=== PATIENT | male | born 1940 | race Caucasian/White ===

== ENCOUNTER → 2017-06-07 15:50 | Emergency (ER) | payer MEDICARE, OTHER ==
[2017-06-07 16:49] LABS: APPEARANCE CLEAR (CLEAR); BILIRUBIN NEGATIVE (NEGATIVE); COLOR YELLOW (YELLOW); GLUCOSE NEGATIVE (NEGATIVE); KETONE NEGATIVE (NEGATIVE); NITRITE NEGATIVE (NEGATIVE); PROTEIN TRACE mg/dL (NEGATIVE); SPECIFIC GRAVITY 1.015 (1.005-1.020); UROBILINOGEN NORMAL (NORMAL)
[2017-06-07 17:23] LABS: ALBUMIN 2.6 g/dL (3.4-5.0); ANION GAP 12.6 mmol/L (8-16); BILIRUBIN - TOTAL 0.69 mg/dL (0.2-1.3); CALCIUM 9.6 mg/dL (8.5-10.1); CARBON DIOXIDE 30.4 mmol/L (21.0-32.0); CREATININE - SERUM 1.2 mg/dL (0.6-1.3); PROTEIN - SERUM 7.6 g/dL (6.4-8.2)
[2017-06-07 19:13] LABS: BASOPHILS 0.2 % (0-2); EOSINOPHILS 0.4 % (0-7); HEMATOCRIT 27.4 % (42.0-54.0); HEMOGLOBIN 8.2 g/dL (13.5-17.5); IMMATURE GRANULOCYTES 0.2 % (0-5); LYMPHOCYTES 4.5 % (15-50); MCH 25.9 pg (26.0-34.0); MCHC 29.9 g/dL (31.0-37.0); MCV 86.4 fL (80.0-100.0); MEAN PLATELET VOLUME 10.2 fL (7.4-10.4); MONOCYTES 7.8 % (2-11); NEUTROPHILS 86.9 % (40-80); PLATELET COUNT 199 10x3/uL (130-400); RBC 3.17 10x6/uL (4.20-6.10); RDW 15.1 % (11.5-14.5)
== END ==
LOC: D.ER 15:50
PROVIDERS: Emergency Medicine; Physician Assistant
DX: M79.661 Pain in right lower leg (principal); R22.41 Localized swelling, mass and lump, right lower limb; J44.9 Chronic obstructive pulmonary disease, unspecified; I50.9 Heart failure, unspecified; E11.9 Type 2 diabetes mellitus without complications; Z79.4 Long term (current) use of insulin; I25.10 Atherosclerotic heart disease of native coronary artery without angina pectoris; R60.0 Localized edema; I87.2 Venous insufficiency (chronic) (peripheral); F17.200 Nicotine dependence, unspecified, uncomplicated; I10 Essential (primary) hypertension

== ENCOUNTER 2017-11-11 15:31 | Emergency (ER) | payer MEDICARE, OTHER ==
[2017-11-11 16:22] LABS: BASOPHILS 0.3 % (0-2); EOSINOPHILS 4.6 % (0-7); HEMATOCRIT 29.1 % (42.0-54.0); HEMOGLOBIN 8.5 g/dL (13.5-17.5); IMMATURE GRANULOCYTES 0.2 % (0-5); LYMPHOCYTES 23.8 % (15-50); MCH 27.8 pg (26.0-34.0); MCHC 29.2 g/dL (31.0-37.0); MCV 95.1 fL (80.0-100.0); MEAN PLATELET VOLUME 9.4 fL (7.4-10.4); MONOCYTES 9.8 % (2-11); NEUTROPHILS 61.3 % (40-80); RBC 3.06 10x6/uL (4.20-6.10); RDW 15.8 % (11.5-14.5); WBC 5.8 10x3/uL (4.8-10.8)
[2017-11-11 16:26] LABS: PLATELET COUNT 131 10x3/uL (130-400)
[2017-11-11 17:11] LABS: ALKALINE PHOSPHATASE 91 U/L (46-116); ALT (SGPT) 25 U/L (10-68); BILIRUBIN - TOTAL 0.53 mg/dL (0.2-1.3); CALC OSMOLALITY 280 mosm/kg (275-300); CALCIUM 9.6 mg/dL (8.5-10.1); CARBON DIOXIDE 38.7 mmol/L (21.0-32.0); CHLORIDE - SERUM 100 mmol/L (98-107); CREATINE KINASE 42 UL (21-232); POTASSIUM - SERUM 4.6 mmol/L (3.5-5.1); PRO BNP 987 pg/mL (0-450); PROTEIN - SERUM 7.5 g/dL (6.4-8.2); SODIUM 141 mmol/L (136-145); TROPONIN-I 0.025 ng/mL (0.000-0.060); UREA NITROGEN 20 mg/dL (7-18); eGFR NON AFRICAN AMERICAN 77 mL/min (90-120)
[2017-11-11 17:27] LABS: GLUCOSE 50 mg/dL (74-106)
== END 2017-11-11 19:09 | disposition home or self-care (01) ==
LOC: D.ER 15:31
PROVIDERS: Nurse Practitioner Family
DX: S82.401A Unspecified fracture of shaft of right fibula, initial encounter for closed fracture (principal); S82.202A Unspecified fracture of shaft of left tibia, initial encounter for closed fracture; X58.XXXA Exposure to other specified factors, initial encounter; Y93.89 Activity, other specified; Y92.89 Other specified places as the place of occurrence of the external cause; J44.9 Chronic obstructive pulmonary disease, unspecified; E11.9 Type 2 diabetes mellitus without complications; I10 Essential (primary) hypertension

== ENCOUNTER → 2017-11-16 10:35 | Outpatient (CLI) | payer MEDICARE, OTHER | END | disposition home or self-care (01) | LOC: D.CT 10:35 | DX: S82.891A Other fracture of right lower leg, initial encounter for closed fracture (principal); X58.XXXA Exposure to other specified factors, initial encounter; Y93.89 Activity, other specified; Y92.89 Other specified places as the place of occurrence of the external cause ==

== ENCOUNTER 2018-01-16 16:27 | Inpatient (IN) | payer MEDICARE, OTHER ==
[~2018-01-16] VITALS: Ht 177.8 cm; Wt 96.7 kg
--- NOTE | ~2018-01-16 | OP ---
PATIENT NAME: YOBANY MEANS MEDICAL RECORD: [id number] :38 LOCATION:.[facility] D.2312 ADMISSION DATE:01/16/18 SURGEON: EDITH CARDONA MD DATE OF OPERATION: 02/05/2018 PREOPERATIVE DIAGNOSES: 1. Acute malnutrition. 2. Ventilatory failure, requiring prolonged mechanical ventilation. POSTOPERATIVE DIAGNOSES: 1. Acute malnutrition. 2. Ventilatory failure, requiring prolonged mechanical ventilation. 3. Mucopurulent debris in both lungs, much worse on the right where the entire tracheobronchial tree was full of thick secretions. PROCEDURES: 1. Esophagogastroduodenoscopy with antral biopsies. 2. Percutaneous endoscopic gastrostomy tube placement, 20 [place] Island[place]. 3. Diagnostic and therapeutic bronchoscopy with bronchoalveolar lavage. 4. Percutaneous tracheostomy placement, 8 mm. SURGEON: Edith Cardona MD HEATING AND VENTILATION ENGINEER: None. BLOOD LOSS: Minimal. ANESTHESIA: General. COMPLICATIONS: None. The risks, possible complications, and alternatives to the procedure were explained to the patient's family. A consent form was signed. OPERATIVE COURSE: The patient was conveyed to the operating room electively on 02/02/2018. General anesthesia was induced by the anesthesia staff. A bite block was inserted. A gastroscope was inserted into the mouth. It was advanced easily into the hypopharynx. The esophagus was easily intubated as were the stomach and the duodenum. Upon withdrawal, retroflexed and angulus views were obtained. Antral biopsies were obtained. I then cleansed the anterior abdominal wall skin. I indented the anterior abdominal wall skin and was able to visualize this endoscopically. I was able to transilluminate the anterior abdominal wall. I chose an area for placement of the gastrostomy tube. A local anesthetic was used to infiltrate skin and subcutaneous tissues at the site. A transverse incision was accomplished. An Angiocath was then advanced down through the skin incision and I punctured the fundus of the stomach on the first try. A guidewire was advanced down through the Angiocath. This was grasped with an endoscopic snare and was withdrawn out through the mouth. I attached the wire to a pull-type gastrostomy tube, which was then pulled into place. Hub and flange devices were attached. I then reendoscoped the patient's esophagus and stomach. There has been no evidence of false passage or perforation. The endoscope was then withdrawn under direct vision. Attention was then turned to the tracheostomy. The patient's neck was extended. The neck and upper chest were sterilely prepped and draped. A bronchoscopic OPERATIVE REPORT [id number] YOBANY MEANS adapter was applied to the endotracheal tube. Through the bronchoscopic adapter and the endotracheal tube, I performed a therapeutic bronchoscopy. There was mucopurulent material that was very thick that extended all the way up the right mainstem bronchus to the elena. I began to aspirate this and irrigated with normal saline. I had to lavage extensively in order to clear all of the segmental bronchi. I would say that about 90% of the mucopurulent material was in the right tracheobronchial tree and maybe about 10% on the left. On the left, I irrigated and aspirated until all the segmental bronchi were cleared as well. I slowly withdrew the bronchoscope. I placed it at the tip of the endotracheal tube. I went around and incised the anterior skin of the neck. I dissected down to the tracheal cartilages. I then had the punch press feeder slowly withdraw the bronchoscope and the endotracheal tube as a unit. I indented the anterior portion of the trachea and we were able to visualize this through the bronchoscope. I then punctured at the second tracheal ring with an Angiocath. I advanced a J-wire caudad. The Angiocath was then removed. We then dilated over the wire. I then advanced an 8-mm percutaneous tracheostomy which had been loaded on a dilator. This was advanced down into the trachea and then the balloon inflated. I then removed the dilator. I then performed a quick bronchoscopy through the tracheostomy tube, which appeared to be well placed. The corrugated tubing was then applied to the tracheostomy tube and we began ventilating through the tracheostomy tube. The flange of the tracheostomy tube was sutured to the surrounding skin with 2-0 nylons. I closed some of the skin around the tracheostomy insertion site with 3-0 Vicryl sutures. Evicel was then injected into the area around the tracheostomy insertion site for additional hemostasis. The patient was then conveyed back to the intensive care unit in critical but stable condition. TRANSINT:[id number] Voice Confirmation ID: [id number] DOCUMENT ID: [id number] EDITH CARDONA MD at 1816 CC: DARWIN BELTRAN [id number] DICTATION DATE: 02/05/18 1419 GOLF COURSE MECHANIC: 02/05/18 1533 ADM IN [place] [id number] [place] [id number]
--- NOTE | ~2018-01-16 | CN ---
PATIENT NAME:YOBANY WEIR MEDICAL RECORD: [id number] : 38 LOCATION:[facility] AD.2312 ADMIT DATE: 01/16/18 ACCOUNT: [id number] CONSULTING PHYSICIAN: MALCOLM HOFF MD REFERRING PHYSICIAN: DARWIN BELTRAN MD DATE OF CONSULTATION: 01/17/2018 Cardiology Consultation DIAGNOSES: 1. Atrial fibrillation with rapid ventricular response. 2. Anemia. 3. Coronary artery disease. 4. Status post coronary artery bypass graft surgery. 5. Hypertension. 6. Chronic obstructive pulmonary disease. 7. Smoking history. 8. Diabetes. HISTORY OF PRESENT ILLNESS: Mr. Weir presents with COPD, found to be markedly anemic. He is now in the ICU with partial respiratory failure, receiving transfusion. He went into atrial fibrillation with rapid ventricular response. He does not know that he has a history of atrial fibrillation. He was on metoprolol for blood pressure. He was placed on amiodarone drip. His heart rate is still in the 120s to 130s. PHYSICAL EXAMINATION: GENERAL APPEARANCE: Well-nourished, well-developed, appears stated age. Level of distress, comfortable. PSYCHIATRIC: Mental status, alert, normal affect. Orientation, oriented to time, place and person. EYES: Lids and conjunctiva, noninjected. No discharge, no pallor. ENT: Lips, teeth, gums, normal dentition. Oropharynx, no cyanosis, no pallor. NECK: Carotid arteries, bilateral normal upstroke, no bruits, no thrills. JUGULAR VEINS: No jugular venous pressure or distention. CERVICAL LYMPH NODES: Nontender, nonenlarged. THYROID: Not enlarged. Nontender. No nodules. LUNGS: Respiratory effort, unlabored. CHEST: Normal curvature. No thoracic deformity. No chest wall tenderness. Percussion, resonant. Auscultation, clear. No wheezes, no rales, no rhonchi. CARDIOVASCULAR: Precordial exam, nondisplaced. No heaves or pericardial thrills. Rate and rhythm, regular. Heart sounds, normal S1, normal S2. No S3, no gallop, no rub. Systolic murmur, not heard. Diastolic murmur, not heard. EXTREMITIES: No cyanosis, no edema. Peripheral pulses, full and equal in all extremities, except as noted. No bruits appreciated. ABDOMEN: Soft, nondistended. Normal aorta. No bruit. Nontender. No masses. Liver, nontender, no hepatomegaly. Spleen, nontender, no splenomegaly. MUSCULOSKELETAL: No joint tenderness. No joint swelling. No erythema. NEUROLOGICAL: Normal gait, normal strength, normal tone. SKIN: Warm and dry. OVERALL IMPRESSION: Atrial fibrillation with rapid ventricular response. Echocardiogram was performed. He has moderate mitral regurgitation, left atrial enlargement, right atrial enlargement from chronic obstructive pulmonary disease. He will definitely need antiarrhythmic therapy. We would not choose CONSULT REPORT [id number] YOBANY WEIR amiodarone as it will not give enough rate slowing. We will change him to sotalol 120 mg p.o. b.i.d. We will see what the results are with the sotalol. TRANSINT:[id number] Voice Confirmation ID: [id number] DOCUMENT ID: [id number] MALCOLM HOFF MD at 1710 CC: [id number] DICTATION DATE: 01/17/18 1158 ASSISTANT GROCERY STORE MANAGER: 01/17/18 1219 ADM IN [facility] [address] [place] [address]
--- NOTE | ~2018-01-16 | EC ---
PATIENT:YOBANY MEANS DATE OF SERVICE: 01/16/18 SEX: M MEDICAL RECORD: [id number] DATE OF : 38 LOCATION:[facility] D231 AGE OF PATIENT: 77 ADMISSION DATE: 01/16/18 REFERRING PHYSICIAN: INTERPRETING PHYSICIAN: MALCOLM MUNOZ MD ECHOCARDIOGRAM REPORT ECHO CHARGES 4 ECHO COMPLETE Date: 01/17 CLINICAL DIAGNOSIS: A-FIB ECHOCARDIOGRAPHIC MEASUREMENTS (adult normal given) AC root (d.<3.7cm) 3.4 cm LV Septum d (<1.2 cm> 1.7 cm Valve Excursion 1.3 cm LV Septum (systole) 2.1 cm Left Atria (s.<4.0cm> 4.3 cm LVPW d(<1.2cm) 1.3 cm RV (d.<2.3cm) 3.0 cm LVPW (sytole) 2.1 cm LV diastole(<5.6CM) 3.9 cm MV E-F(>70mm/sec) cm LV systole 2.3 cm LVOT Diameter 1.9 cm MV exc.(>10mm) cm Est.ejection fraction (50-75%) % DOPPLER: LVIT cm/sec A cm/sec E 103 cm/sec LA cm/sec RVSP 53.4 mmHg LVOT 120 cm/sec AOP1/2T m/s Asc. Ao 149 cm/sec RVOT 71.0 cm/sec RA cm/sec PA 100 cm/sec AV Gradient Peak 9.0 mmHg AV Mean 4.0 mmHg AV Area 2.5 cm MV Gradient Peak 6.0 mmHg MV Mean 2.4 mmHg MV Area cm COMMENTS: Snuff Drier: Heidy GUARDADOOE Millinery Designer: 1 Dr. Munoz TAPE# PACS Pericardial Effusion N DATE OF SERVICE: 01/18/2018 PROCEDURE: Echocardiogram. FINDINGS: 1. Left ventricular chamber size is within normal limits. Left ventricular systolic function is mildly reduced, overall ejection fraction 40%. 2. Left atrium is enlarged at 4.3 cm. Right atrium and right ventricle chamber sizes are as well mildly dilated. 3. Valvular structures have normal structure and motion. ECHOCARDIOGRAM REPORT [id number] YOBANY MEANS 4. Doppler interrogation reveals moderate mitral regurgitation, moderate tricuspid regurgitation, no other valvular insufficiency or stenosis and pulmonary systolic pressure is elevated, estimated at 53 mmHg. 5. No evidence of pericardial effusion or left ventricular thrombus. TRANSINT:[id number] Voice Confirmation ID: [id number] DOCUMENT ID: [id number] MALCOLM MUNOZ MD at 1710 CC: [id number] DICTATION DATE: 01/18/18 1349 INVOICING SPECIALIST: 01/18/18 1423 ADM IN [facility] [address] [place] [id number]
--- NOTE | ~2018-01-16 | HEMODYNAMI ---
PATIENT:YOBANY MEANS MEDICAL RECORD: [id number] : 38 LOCATION:[facility] D.[facility] ADMISSION DATE: 01/16/18 Generatedon:01/22/201810:29 Patient name: YOBANY MEANS Patient #: [id number] SSN: : 1940 Date of study: 01/22/2018 Page: Of Hemodynamic Procedure Report Patient Data Patient Demographics Procedure consent was obtained First Name: YOBANY Gender: Male Last Name: CLARY : 1940 Patient #: [id number] Age: 77 year(s) Race: Unknown Additional ID: [id number] Contact details [address]: [address] [place] [address] State: [place] City: [place] Zip code: [address] Admission Admission Data Admission Date: 01/16/2018 Admission Time: 16:27 Room #: [facility] Procedure Procedure Types Cath Procedure Diagnostic Procedure PPM/ICD PPM Ventricular Implant Procedure Description Procedure Date Procedure Date: 01/22/2018 Procedure Start Time: 9:58 Procedure End Time: 10:27 Procedure Staff Name Function Tl Garcia MD Performing Physician Mohsen Robison RT Monitor Abby Vincent RT Scrub George Gaffney RN Nurse Procedure Data Cath Procedure Fluoroscopy Diagnostic fluoroscopy Total fluoroscopy Time: 1.6 time: 1.6 min min Diagnostic fluoroscopy Total fluoroscopy dose: 78 dose: 78 mGy mGy Contrast Material Contrast Material Type Amount (ml) Visipaque 320 0 Estimated blood loss: 5 ml Procedure Complications No complications Procedure Medications Medication Administration Route Dosage Ancef Irrigation Topical 1 g (1gm/500ml NS) Hemodynamics Rest Heart Rate: 52 (bpm) Snapshots Pre Cath Intra NCS Post Cath Vital Signs Time Heart Resp SPO2 etCO2 NIBP (mmHg) Rhythm Pain Sedation Rate (ipm) (%) (mmHg) Status Level (bpm) 9:42:48 52 15 100 0 132/70(103) NSR 0 (11) 10(A) , No pain 9:47:04 51 15 100 0 142/74(100) NSR 0 (11) 10(A) , No pain 9:51:33 62 14 100 0 141/71(111) NSR 0 (11) 10(A) , No pain 9:56:32 63 9 100 0 Measuring NSR 0 (11) 10(A) , No pain 9:57:56 54 15 100 0 Time NSR 0 (11) 10(A) Exceeded , No pain 10:01:12 53 14 100 0 137/69(98) NSR 0 (11) 10(A) , No pain 10:06:11 48 14 100 0 Measuring NSR 0 (11) 10(A) , No pain 10:07:33 49 15 100 0 Time NSR 0 (11) 10(A) Exceeded , No pain 10:12:32 52 14 100 0 Measuring NSR 0 (11) 10(A) , No pain 10:13:56 53 15 100 0 Time NSR 0 (11) 10(A) Exceeded , No pain 10:18:55 53 14 100 0 Measuring NSR 0 (11) 10(A) , No pain 10:20:19 49 14 100 0 Time NSR 0 (11) 10(A) Exceeded , No pain 10:23:36 51 14 100 0 Time NSR 0 (11) 10(A) Exceeded , No pain Medications Time Medication Route Dose Verified Delivered Reason Notes Effectiven ess by by 9:50:11 Ancef Topical 1 g George George Per Irrigation Gulshan Gaffney RN physician (1gm/500ml RN NS) Procedure Log Time Note 8:57:25 Diagnostic Cath Status : Elective 8:57:52 Mohsen Robison RT(R) sent for patient. Start room use. 8:57:53 Time tracking: Regular hours (M-F 7:00 - 5:00) 8:57:57 Plan of Care:Hemodynamics will remain stable., Cardiac rhythm will remain stable., Comfort level will be maintained., Respiratory function will remain adequate., Patient/ family verbilizes understanding of procedure., Procedure tolerated without complication., Recovers from procedure without complications.. 9:20:49 Patient received from ICU to [facility] 3 On ventilator. Tansferred to table in Supine position. 9:20:50 Warm blankets applied, and stacy hugger turned on for patient comfort. 9:20:50 Correct patient and procedure confirmed by team. 9:20:52 Signed procedure consent form obtained from spouse. 9:20:58 ECG and BP/O2 sat monitors applied to patient. 9:30:38 Medtronic major account representative Cj Swanson present for procedure. 9:41:18 Vital chart was started 9:43:05 Baseline sample Acquired. 9:43:08 Rhythm: paced 9:43:09 Full Disclosure recording started 9:44:13 H&P Date Dictated: 01/17/2018 Within 30 days and on chart.. 9:44:14 Pre-procedure instructions explained to patient. 9:44:14 Pre-op teaching completed and patient verbalized understanding. 9:44:19 Family in patients room. 9:44:22 Patient NPO since Midnight. 9:44:28 Is the patient allergic to Iodine/contrast media? No. 9:44:46 Is patient on blood thinner?No 9:47:03 Patient diabetic? Unknown. 9:47:07 Previous problem with sedation/anesthesia? Unknown ? 9:47:09 Snore? Unknown 9:47:11 Sleep apnea? Unknown 9:47:17 Deviated septum? Unknown 9:47:19 Opens mouth fully? Unknown 9:47:20 Sticks out tongue? Unknown 9:47:22 Airway obstruction? Unknown ? 9:47:24 Dentures? Unknown ? 9:47:58 Patient intubated. Unable to answer pre-procedure questions. 9:48:09 Patient pain scale 0/10 ?. 9:48:15 IV patent on arrival in left forearm with 0.9% NaCl at [facility]. 9:48:18 Lab results completed and on chart. 9:48:23 Right chest area was prepped with chlora-prep and draped in sterile fashion 9:48:24 Alarms reviewed by R. N. 9:48:24 Sharps counted by scrub and verified by R.N. 9:49:00 Pre sharps counted by scrub and verified by RN: Sutures: 2; Sponges: 5; Stick needles: 4; Skin needles: 4; Blade: 1; Cautery: 1 9:49:03 Grounding pad site Left thigh. 9:49:05 Grounding pad site free from injury. 9:50:11 Ancef Irrigation (1gm/500ml NS) 1 g Topical was administered by George Gaffney RN; Per physician; 9:52:59 --------ALL STOP TIME OUT------ 9:53:00 Final Timeout: patient, procedure, and site verified with staff and physician. All members of the team are in agreement. 9:53:05 Right chest site verified by team. 9:53:09 Physical assessment completed. ASA score P 4 - A patient with severe systemic disease that is a constant threat to life as per Tl Garcia MD. 9:53:17 Sedation plan: IV Moderate Sedation Medication:Versed, Fentanyl 9:57:18 Procedure started. 9:58:44 Lidocaine 2% was administered to right subclavicular area by Tl Garcia MD . 9:58:50 Incision made to left subclavicular area. 9:59:07 Generator pocket made/opened. 9:59:10 Access obtained with 4Fr micropunture. 9:59:14 Right subclavian vein accessed with 7Fr Peel Away Sheath. 10:01:15 Ventricular lead inserted and advanced. 10:01:23 Use device set NORRED PPM 10:01:27 2-0 Vicryl Plus [id number] opened to sterile field. 10:01:27 2-0 Silk 685H opened to sterile field. 10:01:34 Cautery Tip Pipe Cleaning Machine Operator opened to sterile field. 10:01:34 Cautery Pushbutton Pencil opened to sterile field. 10:01:37 MICROPUNCTURE 4FR [employer] Data ([id number]) opened to sterile field. 10:01:38 Tegaderm 4 x 4 (1626W) opened to sterile field. 10:01:39 Stapler Skin 35W Proximate Plus (PMW35) opened to sterile field. 10:02:12 Medtronic 4074-52 PPM Lead opened to sterile field. 10:02:13 Medtronic Adapta PPM Single Generator [id number] opened to sterile field. 10:02:28 Ventricular lead positioned. 10:02:32 Ventricular lead tested. 10:02:35 Peel-a-way sheath was split and removed. 10:05:33 PPM Single was attached to lead(s) and inserted into pocket. 10:05:37 Device pocket was irrigated with Ancef. 10:06:42 Ventricular lead attachment was completed with 2-0 silk. 10:14:06 Temp Pacer turned off and removed. 10:16:23 Generator was sutured in place with 2-0 silk. 10:17:18 Subcutaneous closure was completed with 3-0 vicryl. 10:17:54 Skin closure was completed with 35mm Daniel. 10:18:02 Rt Chest incision was dressed with 4 x 4 and Tegaderm. 10:18:26 Procedure type changed to Cath procedure, Diagnostic procedure, PPM/ICD, PPM Ventricular Implant 10:20:53 Post sharps counted by scrub and verified by RN: Sutures: 2; Sponges: 5; Stick needles: 4; Skin needles: 2; Blade: 1; Cautery: 1 10:21:01 Procedure ended.(Physican Out) 10:21:16 Fluoroscopy time 01.60 minutes. 10:21:20 Flurop Dose total: 78 10:21:20 Fluoroscopy dose: 78 mGy 10:21:27 Contrast amount:Visipaque 320 0ml. 10:21:32 Sharps counted by scrub and verified by R.N. 10:21:47 Insertion/operative site no bleeding no hematoma. 10:21:51 Post-op/insertion site Right Chest area dressed using a 4 x 4 and Tegaderm. 10:21:53 Post Procedure Pulses reassessed and unchanged 10:22:01 Post-procedure physical assessment completed. ASA score P 4 - A patient with severe systemic disease that is a constant threat to life as per Tl Garcia MD. 10:22:05 Post procedure rhythm: paced 10:22:09 Estimated blood loss: 5 ml 10:22:11 Post procedure instruction explained to patient.Patient verbalizes understanding. 10:22:11 Patient needs reinforcement of post procedure teaching. 10:22:17 Procedure Complication : No complications 10:27:42 Vital chart was stopped 10:27:42 See physician's report for complete and final results. 10:27:44 Report given to ICU. 10:27:47 Patient transfered to ICU with Bed. 10:27:49 Procedure ended. 10:27:49 Full Disclosure recording stopped 10:27:55 End room use (Document Last) Device Usage Item Name Manufacture Quantity Catalog Hospital Part Current Minimal Lot# / Number Charge Number Stock Stock Serial# Code 2-0 Vicryl Ethicon 1 [id number] 209695 [id number] 5 Plus [id number] 2-0 Silk 685H Ethicon 1 685H 512559 47616 320779 5 Cautery Tip Microtek 1 [id number] 482352 [id number] 244046 5 Pipe Cleaning Machine [employer] Cautery Microtek 1 [id number] 14582 280466 5 [employer] [facility] [employer] Pencil MICROPUNCTURE [facility] 1 [id number] [id number] [id number] 5 4FR [place] ([id number]) Tegaderm 4 x 3M 1 1626W 467241 [id number] 5 4 (1626W) Stapler Skin Unknown 1 PMW35 [id number] 906710 [id number] 5 35W Proximate Plus (PMW35) Medtronic Medtronic 1 4074-52 304579 [id number] 5 [id number] 4074-52 PPM EXP Lead 11-21-20 Medtronic Medtronic 1 ADSR01 [id number] [id number] 5 [id number] Adapta PPM EXP Single 01-11-19 Generator ADSR01 Signature Audit [place] Stage Time Signature Unsigned Intra-Procedure 01/22/2018 Mohsen Robison 10:28:54 AM RT(R) Signatures Monitor : Mohsen Robison RT Signature : Date : Time : [address] [address]
[2018-01-16] MEDS ORDERED: FUROSEMIDE40 MG PO (17:07)
[2018-01-16] MEDS ORDERED: JANUVIA100 MG PO (17:08)
[2018-01-16] MEDS ORDERED: ACTOPLUS MET PO (17:09)
[2018-01-16] MEDS ORDERED: RELAFEN750 MG PO (17:14)
[2018-01-16] MEDS ORDERED: TOPROL XL50 MG PO (17:15)
[2018-01-16] MEDS ORDERED: LYRICA50 MG PO (17:15)
[2018-01-16] MEDS ORDERED: ASPIRIN EC81 M1 PO (17:15)
[2018-01-16] MEDS ORDERED: CRESTOR10 MG PO (17:16)
[2018-01-16] MEDS ORDERED: K-TAB10 MEQ PO (17:16)
[2018-01-16] MEDS ORDERED: MOBIC7.5 MG PO (17:16)
[2018-01-16] MEDS ORDERED: CALCIUM 500 +1 EAC3 PO (17:17)
[2018-01-16] MEDS ORDERED: MENS (17:18)
[2018-01-16] MEDS ORDERED: EQUATE (17:18)
[2018-01-16] MEDS ORDERED: LISINOPRIL10 MG PO (17:19)
[2018-01-16] MEDS ORDERED: VENTOLIN HFA18 GM INH (17:21)
[2018-01-16] MEDS ORDERED: GLUCOPHAGE850 MG PO (17:21)
[2018-01-16] MEDS ORDERED: MELATONIN5 MG PO (17:22)
[2018-01-16 17:23] LABS: BASOPHILS 0.4 % (0-2); EOSINOPHILS 1.2 % (0-7); HEMOGLOBIN 7.6 g/dL (13.5-17.5); IMMATURE GRANULOCYTES 0.2 % (0-5); LYMPHOCYTES 10.8 % (15-50); MCH 28.6 pg (26.0-34.0); MCHC 29.2 g/dL (31.0-37.0); MCV 97.7 fL (80.0-100.0); MEAN PLATELET VOLUME 10.1 fL (7.4-10.4); NEUTROPHILS 80.4 % (40-80); RBC 2.66 10x6/uL (4.20-6.10); RDW 16.1 % (11.5-14.5)
[2018-01-16] MEDS ORDERED: TRICOR145 MG PO (17:23)
[2018-01-16 17:24] LABS: PLATELET COUNT 169 10x3/uL (130-400)
[2018-01-16] MEDS ORDERED: LIPITOR20 MG PO (17:24)
[2018-01-16] MEDS ORDERED: NAMENDA XR28 MG PO (17:24)
[2018-01-16] MEDS ORDERED: PROTONIX40 MG PO (17:24)
[2018-01-16] MEDS ORDERED: TIROSINT50 MCG PO (17:25)
[2018-01-16 17:29] VITALS: BP 111/63; BMI 25.4
[2018-01-16 17:35] LABS: INR 1.03 (0.85-1.17); PROTIME 13.1 SECONDS (11.6-15.0)
[2018-01-16 18:04] LABS: APPEARANCE CLEAR (CLEAR); BILIRUBIN NEGATIVE (NEGATIVE); COLOR YELLOW (YELLOW); GLUCOSE NEGATIVE (NEGATIVE); KETONE NEGATIVE (NEGATIVE); NITRITE NEGATIVE (NEGATIVE); PROTEIN NEGATIVE (NEGATIVE); SPECIFIC GRAVITY 1.015 (1.005-1.020); UROBILINOGEN NORMAL (NORMAL)
[2018-01-16 18:06] LABS: ALBUMIN 2.9 g/dL (3.4-5.0); ANION GAP 4.8 mmol/L (8-16); BILIRUBIN - TOTAL 0.5 mg/dL (0.2-1.3); CALCIUM 10.7 mg/dL (8.5-10.1); CREATININE - SERUM 1.1 mg/dL (0.6-1.3); POTASSIUM - SERUM 4.7 mmol/L (3.5-5.1); PROTEIN - SERUM 6.9 g/dL (6.4-8.2)
[2018-01-16 18:12] LABS: CARBON DIOXIDE 41.9 mmol/L (21.0-32.0)
[2018-01-16 20:25] VITALS: BP 100/36
[2018-01-16 23:18] VITALS: BP 137/73
[2018-01-16 23:30] VITALS: BP 108/60
[2018-01-16 23:45] VITALS: BP 96/53
[2018-01-17] VITALS (60 sets, daily range): BP systolic 66–189; BP diastolic 50–139; Ht 177.8 cm; Wt 96.7 kg
[2018-01-17 06:26] LABS: BASOPHILS 0.3 % (0-2); IMMATURE GRANULOCYTES 0.1 % (0-5); LYMPHOCYTES 8.5 % (15-50); MCH 28.7 pg (26.0-34.0); MCHC 29.7 g/dL (31.0-37.0); MCV 96.4 fL (80.0-100.0); MEAN PLATELET VOLUME 9.9 fL (7.4-10.4); MONOCYTES 6.1 % (2-11); PLATELET COUNT 150 10x3/uL (130-400); RDW 15.8 % (11.5-14.5)
[2018-01-17 06:28] LABS: HEMATOCRIT 32.3 % (42.0-54.0); HEMOGLOBIN 9.6 g/dL (13.5-17.5); RBC 3.35 10x6/uL (4.20-6.10); WBC 7.2 10x3/uL (4.8-10.8)
[2018-01-17 06:50] LABS: ANION GAP 5.5 mmol/L (8-16); CALCIUM 10.2 mg/dL (8.5-10.1); CARBON DIOXIDE 39.1 mmol/L (21.0-32.0); CREATININE - SERUM 1.1 mg/dL (0.6-1.3); POTASSIUM - SERUM 4.6 mmol/L (3.5-5.1)
[2018-01-17 09:42] LABS: % SATURATION 4 % (15-55); IRON 19 ug/dl (35-150); TOTAL IRON BIND CAPACITY 384 ug/dl (260-445); UNSAT IRON BIND CAPACITY 365 ug/dl (150-375)
[2018-01-17 09:57] LABS: T4 THYROXIN - FREE 1.25 ng/dL (0.76-1.46); THYROID STIMULATING HORMONE 1.43 uIU/mL (0.36-3.74)
[2018-01-18] VITALS (71 sets, daily range): BP systolic 66–148; BP diastolic 42–98
[2018-01-18 02:41] LABS: CREATININE - URINE 93.1 mg/dL (30-125)
[2018-01-18 02:59] LABS: PROTEIN - URINE 692.6 mg/dL (0.0-11.9)
[2018-01-18 04:21] LABS: BASOPHILS 0.1 % (0-2); EOSINOPHILS 0 % (0-7); HEMATOCRIT 32.5 % (42.0-54.0); HEMOGLOBIN 10.1 g/dL (13.5-17.5); IMMATURE GRANULOCYTES 0.2 % (0-5); LYMPHOCYTES 2.8 % (15-50); MCH 29.9 pg (26.0-34.0); MCHC 31.1 g/dL (31.0-37.0); MCV 96.2 fL (80.0-100.0); MONOCYTES 4.2 % (2-11); NEUTROPHILS 92.7 % (40-80); RBC 3.38 10x6/uL (4.20-6.10); RDW 15.8 % (11.5-14.5)
[2018-01-18 04:27] LABS: PLATELET COUNT 187 10x3/uL (130-400); WBC 13.4 10x3/uL (4.8-10.8)
[2018-01-18 05:30] LABS: ALBUMIN 2.5 g/dL (3.4-5.0); ANION GAP 7.7 mmol/L (8-16); BILIRUBIN - TOTAL 0.8 mg/dL (0.2-1.3); CALCIUM 9.5 mg/dL (8.5-10.1); CARBON DIOXIDE 38.4 mmol/L (21.0-32.0); CREATININE - SERUM 1.3 mg/dL (0.6-1.3); MAGNESIUM - SERUM 1.3 mg/dL (1.8-2.4); PHOSPHOROUS 2.9 mg/dL (2.5-4.9); POTASSIUM - SERUM 5.1 mmol/L (3.5-5.1)
[2018-01-18 05:32] LABS: TROPONIN-I 1.236 ng/mL (0.000-0.060)
[2018-01-18 09:19] LABS: FOLATE (FOLIC ACID) - SERUM >20.0 ng/mL (>3.0)
[2018-01-18 12:19] LABS: HAPTOGLOBIN 264 mg/dL (34-200)
[2018-01-18 15:25] LABS: SPE - A/G RATIO 0.9 (0.7-1.7); SPE - ALBUMIN 3.2 g/dL (2.9-4.4); SPE - ALPHA-1 GLOBULIN 0.3 g/dL (0.0-0.4); SPE - ALPHA-2 GLOBULIN 0.8 g/dL (0.4-1.0); SPE - BETA GLOBULIN 1.2 g/dL (0.7-1.3); SPE - GAMMA GLOBULIN 1.4 g/dL (0.4-1.8); SPE - M-SPIKE Not Observed g/dL (Not Observed); SPE - TOTAL PROTEIN 6.9 g/dL (6.0-8.5)
[2018-01-19] VITALS (34 sets, daily range): BP systolic 66–156; BP diastolic 49–739
[2018-01-19 04:48] LABS: BASOPHILS 0 % (0-2); EOSINOPHILS 0 % (0-7); HEMOGLOBIN 8.2 g/dL (13.5-17.5); IMMATURE GRANULOCYTES 0.3 % (0-5); LYMPHOCYTES 2.8 % (15-50); MCH 29.2 pg (26.0-34.0); MCHC 31.7 g/dL (31.0-37.0); MEAN PLATELET VOLUME 10.9 fL (7.4-10.4); MONOCYTES 4.1 % (2-11); NEUTROPHILS 92.8 % (40-80); RBC 2.81 10x6/uL (4.20-6.10); RDW 16.3 % (11.5-14.5)
[2018-01-19 04:54] LABS: HEMATOCRIT 25.9 % (42.0-54.0); MCV 92.2 fL (80.0-100.0); PLATELET COUNT 132 10x3/uL (130-400); WBC 7.8 10x3/uL (4.8-10.8)
[2018-01-19 05:22] LABS: BILIRUBIN - TOTAL 0.78 mg/dL (0.2-1.3); CALCIUM 8.8 mg/dL (8.5-10.1); CARBON DIOXIDE 33.9 mmol/L (21.0-32.0); CREATININE - SERUM 1.4 mg/dL (0.6-1.3); PHOSPHOROUS 2.8 mg/dL (2.5-4.9); PROTEIN - SERUM 5.8 g/dL (6.4-8.2)
[2018-01-19 05:42] LABS: MAGNESIUM - SERUM 2.1 mg/dL (1.8-2.4); POTASSIUM - SERUM 3.9 mmol/L (3.5-5.1); TROPONIN-I 0.449 ng/mL (0.000-0.060)
[2018-01-19 14:21] LABS: SPE - A/G RATIO 0.8 (0.7-1.7); SPE - ALBUMIN 2.8 g/dL (2.9-4.4); SPE - ALPHA-1 GLOBULIN 0.4 g/dL (0.0-0.4); SPE - ALPHA-2 GLOBULIN 0.8 g/dL (0.4-1.0); SPE - BETA GLOBULIN 1.1 g/dL (0.7-1.3); SPE - GAMMA GLOBULIN 1.3 g/dL (0.4-1.8); SPE - M-SPIKE Not Observed g/dL (Not Observed); SPE - TOTAL PROTEIN 6.3 g/dL (6.0-8.5)
[2018-01-20] VITALS (24 sets, daily range): BP systolic 120–166; BP diastolic 55–92
[2018-01-20 04:24] LABS: BASOPHILS 0 % (0-2); EOSINOPHILS 0 % (0-7); HEMATOCRIT 21.7 % (42.0-54.0); IMMATURE GRANULOCYTES 0.2 % (0-5); LYMPHOCYTES 3.7 % (15-50); MCH 29.5 pg (26.0-34.0); MCHC 31.8 g/dL (31.0-37.0); MCV 92.7 fL (80.0-100.0); MONOCYTES 6.3 % (2-11); NEUTROPHILS 89.8 % (40-80); PLATELET COUNT 114 10x3/uL (130-400); RBC 2.34 10x6/uL (4.20-6.10); RDW 16.7 % (11.5-14.5); WBC 6.2 10x3/uL (4.8-10.8)
[2018-01-20 04:26] LABS: HEMOGLOBIN 6.9 g/dL (13.5-17.5)
[2018-01-20 04:39] LABS: CARBON DIOXIDE 32.3 mmol/L (21.0-32.0); CREATININE - SERUM 1.2 mg/dL (0.6-1.3); MAGNESIUM - SERUM 1.9 mg/dL (1.8-2.4); PHOSPHOROUS 2.6 mg/dL (2.5-4.9)
[2018-01-20 04:41] LABS: POTASSIUM - SERUM 3.3 mmol/L (3.5-5.1)
[2018-01-20 04:48] LABS: APTT 38.5 SECONDS (22.8-39.4); INR 1.04 (0.85-1.17); PROTIME 13.2 SECONDS (11.6-15.0)
[2018-01-20 04:49] LABS: D-DIMER-QUANTITATIVE 2.11 ug/mLFEU (0.20-0.54)
[2018-01-20 15:21] LABS: HEMOGLOBIN 8.9 g/dL (13.5-17.5)
[2018-01-21] VITALS (24 sets, daily range): BP systolic 112–177; BP diastolic 52–75
[2018-01-21 05:49] LABS: BASOPHILS 0 % (0-2); EOSINOPHILS 0 % (0-7); HEMATOCRIT 27.9 % (42.0-54.0); HEMOGLOBIN 8.8 g/dL (13.5-17.5); IMMATURE GRANULOCYTES 0.2 % (0-5); LYMPHOCYTES 4.7 % (15-50); MCH 28.2 pg (26.0-34.0); MCHC 31.5 g/dL (31.0-37.0); MCV 89.4 fL (80.0-100.0); MEAN PLATELET VOLUME 10.4 fL (7.4-10.4); NEUTROPHILS 89.1 % (40-80); PLATELET COUNT 99 10x3/uL (130-400); RBC 3.12 10x6/uL (4.20-6.10); RDW 18.1 % (11.5-14.5); WBC 6.7 10x3/uL (4.8-10.8)
[2018-01-21 06:08] LABS: ALBUMIN 1.8 g/dL (3.4-5.0); ALKALINE PHOSPHATASE 78 U/L (46-116); ALT (SGPT) 67 U/L (10-68); BILIRUBIN - TOTAL 0.68 mg/dL (0.2-1.3); CALC OSMOLALITY 295 mosm/kg (275-300); CALCIUM 8.3 mg/dL (8.5-10.1); CARBON DIOXIDE 32.3 mmol/L (21.0-32.0); CHLORIDE - SERUM 105 mmol/L (98-107); POTASSIUM - SERUM 3.6 mmol/L (3.5-5.1); PROTEIN - SERUM 5.5 g/dL (6.4-8.2); SODIUM 143 mmol/L (136-145); UREA NITROGEN 36 mg/dL (7-18); eGFR NON AFRICAN AMERICAN 77 mL/min (90-120)
[2018-01-21 06:11] LABS: GLUCOSE 154 mg/dL (74-106)
[2018-01-22] VITALS (24 sets, daily range): BP systolic 144–186; BP diastolic 55–763
[2018-01-22 04:25] LABS: BASOPHILS 0 % (0-2); EOSINOPHILS 0 % (0-7); HEMATOCRIT 28.1 % (42.0-54.0); HEMOGLOBIN 8.6 g/dL (13.5-17.5); IMMATURE GRANULOCYTES 0.3 % (0-5); LYMPHOCYTES 5.2 % (15-50); MCH 27.8 pg (26.0-34.0); MCHC 30.6 g/dL (31.0-37.0); MCV 90.9 fL (80.0-100.0); MONOCYTES 6.4 % (2-11); NEUTROPHILS 88.1 % (40-80); PLATELET COUNT 94 10x3/uL (130-400); RBC 3.09 10x6/uL (4.20-6.10); RDW 17.4 % (11.5-14.5); WBC 6.9 10x3/uL (4.8-10.8)
[2018-01-22 04:40] LABS: ALBUMIN 1.8 g/dL (3.4-5.0); ALKALINE PHOSPHATASE 106 U/L (46-116); ALT (SGPT) 60 U/L (10-68); CALCIUM 7.9 mg/dL (8.5-10.1); CARBON DIOXIDE 32.5 mmol/L (21.0-32.0); CHLORIDE - SERUM 108 mmol/L (98-107); CREATININE - SERUM 0.9 mg/dL (0.6-1.3); MAGNESIUM - SERUM 1.9 mg/dL (1.8-2.4); PHOSPHOROUS 2.8 mg/dL (2.5-4.9); PROTEIN - SERUM 5.3 g/dL (6.4-8.2); SODIUM 142 mmol/L (136-145); UREA NITROGEN 32 mg/dL (7-18); eGFR NON AFRICAN AMERICAN 87 mL/min (90-120)
[2018-01-22 04:41] LABS: CALC OSMOLALITY 295 mosm/kg (275-300); GLUCOSE 203 mg/dL (74-106); POTASSIUM - SERUM 4.2 mmol/L (3.5-5.1)
[2018-01-22 17:11] LABS: UPE RAND - ALPHA 1 GLOBULIN 3.8 % (()); UPE RAND - ALPHA 2 GLOBULIN 15.2 % (()); UPE RAND - BETA GLOBULIN 19.2 % (()); UPE RAND - GAMMA GLOBULIN 18.7 % (())
[2018-01-23] VITALS (23 sets, daily range): BP systolic 126–178; BP diastolic 60–90
[2018-01-23 06:40] LABS: BASOPHILS 0 % (0-2); EOSINOPHILS 0 % (0-7); HEMATOCRIT 28.3 % (42.0-54.0); HEMOGLOBIN 8.7 g/dL (13.5-17.5); IMMATURE GRANULOCYTES 0.5 % (0-5); LYMPHOCYTES 5.1 % (15-50); MCH 28.2 pg (26.0-34.0); MCHC 30.7 g/dL (31.0-37.0); MCV 91.9 fL (80.0-100.0); MEAN PLATELET VOLUME 10.8 fL (7.4-10.4); MONOCYTES 5.8 % (2-11); NEUTROPHILS 88.6 % (40-80); PLATELET COUNT 92 10x3/uL (130-400); RBC 3.08 10x6/uL (4.20-6.10); RDW 17.2 % (11.5-14.5)
[2018-01-23 07:00] LABS: ALBUMIN 1.7 g/dL (3.4-5.0); ALKALINE PHOSPHATASE 112 U/L (46-116); ALT (SGPT) 55 U/L (10-68); BILIRUBIN - TOTAL 0.57 mg/dL (0.2-1.3); CALC OSMOLALITY 289 mosm/kg (275-300); CALCIUM 8.1 mg/dL (8.5-10.1); CARBON DIOXIDE 32.1 mmol/L (21.0-32.0); CHLORIDE - SERUM 108 mmol/L (98-107); CREATININE - SERUM 0.7 mg/dL (0.6-1.3); GLUCOSE 148 mg/dL (74-106); MAGNESIUM - SERUM 1.8 mg/dL (1.8-2.4); PROTEIN - SERUM 5.2 g/dL (6.4-8.2); SODIUM 142 mmol/L (136-145); UREA NITROGEN 23 mg/dL (7-18); eGFR NON AFRICAN AMERICAN > 90 mL/min (90-120)
[2018-01-23 07:03] LABS: WBC 8.7 10x3/uL (4.8-10.8)
[2018-01-23 17:14] LABS: AFB SPECIMEN PROCESSING Concentration (())
[2018-01-24] VITALS (24 sets, daily range): BP systolic 88–151; BP diastolic 50–107
[2018-01-24 05:48] LABS: BASOPHILS 0 % (0-2); HEMATOCRIT 26.6 % (42.0-54.0); HEMOGLOBIN 8.2 g/dL (13.5-17.5); IMMATURE GRANULOCYTES 0.6 % (0-5); LYMPHOCYTES 7.2 % (15-50); MCH 28.1 pg (26.0-34.0); MCHC 30.8 g/dL (31.0-37.0); MCV 91.1 fL (80.0-100.0); MONOCYTES 6.3 % (2-11); NEUTROPHILS 84.9 % (40-80); PLATELET COUNT 106 10x3/uL (130-400); RBC 2.92 10x6/uL (4.20-6.10); RDW 16.8 % (11.5-14.5); WBC 8.3 10x3/uL (4.8-10.8)
[2018-01-24 06:21] LABS: ALBUMIN 1.5 g/dL (3.4-5.0); ALKALINE PHOSPHATASE 159 U/L (46-116); ALT (SGPT) 51 U/L (10-68); BILIRUBIN - TOTAL 0.72 mg/dL (0.2-1.3); CALC OSMOLALITY 289 mosm/kg (275-300); CALCIUM 8.3 mg/dL (8.5-10.1); CARBON DIOXIDE 30.1 mmol/L (21.0-32.0); CHLORIDE - SERUM 109 mmol/L (98-107); CREATININE - SERUM 0.7 mg/dL (0.6-1.3); GLUCOSE 152 mg/dL (74-106); MAGNESIUM - SERUM 1.7 mg/dL (1.8-2.4); POTASSIUM - SERUM 3.8 mmol/L (3.5-5.1); PRO BNP 2460 pg/mL (0-450); SODIUM 143 mmol/L (136-145); UREA NITROGEN 18 mg/dL (7-18); eGFR NON AFRICAN AMERICAN > 90 mL/min (90-120)
[2018-01-24 13:19] LABS: FUNGUS STAIN Final report (())
[2018-01-25] VITALS (24 sets, daily range): BP systolic 121–178; BP diastolic 65–88
[2018-01-25 05:35] LABS: BASOPHILS 0 % (0-2); EOSINOPHILS 0 % (0-7); IMMATURE GRANULOCYTES 0.7 % (0-5); MCH 28.3 pg (26.0-34.0); MCHC 31.3 g/dL (31.0-37.0); MCV 90.5 fL (80.0-100.0); MEAN PLATELET VOLUME 11.3 fL (7.4-10.4); MONOCYTES 5.5 % (2-11); NEUTROPHILS 89.8 % (40-80); PLATELET COUNT 121 10x3/uL (130-400); RDW 16.1 % (11.5-14.5); WBC 8.9 10x3/uL (4.8-10.8)
[2018-01-25 05:42] LABS: HEMATOCRIT 32.3 % (42.0-54.0); HEMOGLOBIN 10.1 g/dL (13.5-17.5); RBC 3.57 10x6/uL (4.20-6.10)
[2018-01-25 06:05] LABS: ALBUMIN 1.6 g/dL (3.4-5.0); ALKALINE PHOSPHATASE 187 U/L (46-116); ALT (SGPT) 49 U/L (10-68); BILIRUBIN - TOTAL 0.62 mg/dL (0.2-1.3); CALC OSMOLALITY 290 mosm/kg (275-300); CALCIUM 8.1 mg/dL (8.5-10.1); CARBON DIOXIDE 29.2 mmol/L (21.0-32.0); CHLORIDE - SERUM 108 mmol/L (98-107); CREATININE - SERUM 0.7 mg/dL (0.6-1.3); POTASSIUM - SERUM 4.3 mmol/L (3.5-5.1); PROTEIN - SERUM 5.3 g/dL (6.4-8.2); SODIUM 142 mmol/L (136-145); UREA NITROGEN 18 mg/dL (7-18); eGFR NON AFRICAN AMERICAN > 90 mL/min (90-120)
[2018-01-25 06:06] LABS: GLUCOSE 210 mg/dL (74-106)
[2018-01-25 10:28] LABS: APPEARANCE CLEAR (CLEAR); BILIRUBIN NEGATIVE (NEGATIVE); COLOR DY (YELLOW); GLUCOSE 100 mg/dL (NEGATIVE); KETONE NEGATIVE (NEGATIVE); NITRITE NEGATIVE (NEGATIVE); PROTEIN TRACE mg/dL (NEGATIVE); SPECIFIC GRAVITY 1.015 (1.005-1.020); UROBILINOGEN NORMAL (NORMAL)
[2018-01-25 10:31] LABS: RED CELLS - URINE 0-5 /hpf (0-5)
[2018-01-25 10:32] LABS: BACTERIA FEW /hpf (NONE SEEN)
[2018-01-25 10:33] LABS: EPITHELIAL CELLS RARE /hpf (0-5)
[2018-01-25 10:35] LABS: WHITE CELLS - URINE RARE /hpf (0-5)
[2018-01-26] VITALS (31 sets, daily range): BP systolic 102–163; BP diastolic 57–84
[2018-01-26 05:29] LABS: BASOPHILS 0 % (0-2); EOSINOPHILS 1.2 % (0-7); HEMATOCRIT 29.9 % (42.0-54.0); HEMOGLOBIN 9.3 g/dL (13.5-17.5); IMMATURE GRANULOCYTES 0.7 % (0-5); MCH 28.2 pg (26.0-34.0); MCHC 31.1 g/dL (31.0-37.0); MCV 90.6 fL (80.0-100.0); MEAN PLATELET VOLUME 10.4 fL (7.4-10.4); MONOCYTES 7.9 % (2-11); NEUTROPHILS 81.2 % (40-80); PLATELET COUNT 143 10x3/uL (130-400); RDW 16.3 % (11.5-14.5); WBC 8.1 10x3/uL (4.8-10.8)
[2018-01-26 05:36] LABS: ALBUMIN 1.5 g/dL (3.4-5.0); ALKALINE PHOSPHATASE 184 U/L (46-116); ALT (SGPT) 42 U/L (10-68); BILIRUBIN - TOTAL 0.49 mg/dL (0.2-1.3); CALC OSMOLALITY 292 mosm/kg (275-300); CALCIUM 7.9 mg/dL (8.5-10.1); CARBON DIOXIDE 31.2 mmol/L (21.0-32.0); CHLORIDE - SERUM 110 mmol/L (98-107); CREATININE - SERUM 0.6 mg/dL (0.6-1.3); GLUCOSE 178 mg/dL (74-106); MAGNESIUM - SERUM 1.9 mg/dL (1.8-2.4); PHOSPHOROUS 2.5 mg/dL (2.5-4.9); POTASSIUM - SERUM 4.1 mmol/L (3.5-5.1); PRO BNP 3954 pg/mL (0-450); SODIUM 144 mmol/L (136-145); UREA NITROGEN 19 mg/dL (7-18); eGFR NON AFRICAN AMERICAN > 90 mL/min (90-120)
[2018-01-27] VITALS (24 sets, daily range): BP systolic 110–149; BP diastolic 55–79
[2018-01-27 05:19] LABS: BASOPHILS 0.1 % (0-2); EOSINOPHILS 0.2 % (0-7); HEMATOCRIT 30.5 % (42.0-54.0); HEMOGLOBIN 9.4 g/dL (13.5-17.5); IMMATURE GRANULOCYTES 0.7 % (0-5); LYMPHOCYTES 4.7 % (15-50); MCH 28.2 pg (26.0-34.0); MCHC 30.8 g/dL (31.0-37.0); MCV 91.6 fL (80.0-100.0); MEAN PLATELET VOLUME 10.7 fL (7.4-10.4); NEUTROPHILS 91.3 % (40-80); PLATELET COUNT 163 10x3/uL (130-400); RBC 3.33 10x6/uL (4.20-6.10); RDW 16.2 % (11.5-14.5); WBC 8.3 10x3/uL (4.8-10.8)
[2018-01-27 05:35] LABS: ALBUMIN 1.5 g/dL (3.4-5.0); ALKALINE PHOSPHATASE 214 U/L (46-116); ALT (SGPT) 49 U/L (10-68); BILIRUBIN - TOTAL 0.63 mg/dL (0.2-1.3); CALC OSMOLALITY 288 mosm/kg (275-300); CALCIUM 8.4 mg/dL (8.5-10.1); CARBON DIOXIDE 26.8 mmol/L (21.0-32.0); CHLORIDE - SERUM 108 mmol/L (98-107); CREATININE - SERUM 0.7 mg/dL (0.6-1.3); GLUCOSE 203 mg/dL (74-106); MAGNESIUM - SERUM 1.9 mg/dL (1.8-2.4); PROTEIN - SERUM 5.2 g/dL (6.4-8.2); SODIUM 141 mmol/L (136-145); UREA NITROGEN 19 mg/dL (7-18); eGFR NON AFRICAN AMERICAN > 90 mL/min (90-120)
[2018-01-27 05:45] LABS: POTASSIUM - SERUM 4.8 mmol/L (3.5-5.1)
[2018-01-28] VITALS (25 sets, daily range): BP systolic 110–151; BP diastolic 56–76
[2018-01-28 05:06] LABS: BASOPHILS 0 % (0-2); EOSINOPHILS 0 % (0-7); HEMATOCRIT 33.4 % (42.0-54.0); HEMOGLOBIN 10.2 g/dL (13.5-17.5); IMMATURE GRANULOCYTES 0.9 % (0-5); LYMPHOCYTES 4.3 % (15-50); MCH 27.9 pg (26.0-34.0); MCHC 30.5 g/dL (31.0-37.0); MCV 91.5 fL (80.0-100.0); MEAN PLATELET VOLUME 11.1 fL (7.4-10.4); NEUTROPHILS 90.8 % (40-80); PLATELET COUNT 194 10x3/uL (130-400); RBC 3.65 10x6/uL (4.20-6.10); RDW 15.7 % (11.5-14.5)
[2018-01-28 05:07] LABS: WBC 10.8 10x3/uL (4.8-10.8)
[2018-01-28 05:25] LABS: CALC OSMOLALITY 288 mosm/kg (275-300); CALCIUM 8.6 mg/dL (8.5-10.1); CARBON DIOXIDE 29.3 mmol/L (21.0-32.0); CHLORIDE - SERUM 106 mmol/L (98-107); CREATININE - SERUM 0.7 mg/dL (0.6-1.3); GLUCOSE 244 mg/dL (74-106); MAGNESIUM - SERUM 1.8 mg/dL (1.8-2.4); POTASSIUM - SERUM 4.7 mmol/L (3.5-5.1); SODIUM 139 mmol/L (136-145); UREA NITROGEN 22 mg/dL (7-18); eGFR NON AFRICAN AMERICAN > 90 mL/min (90-120)
[2018-01-29] VITALS (24 sets, daily range): BP systolic 98–146; BP diastolic 52–98
[2018-01-29 05:28] LABS: BASOPHILS 0 % (0-2); EOSINOPHILS 0 % (0-7); HEMATOCRIT 32.2 % (42.0-54.0); HEMOGLOBIN 9.9 g/dL (13.5-17.5); IMMATURE GRANULOCYTES 0.7 % (0-5); LYMPHOCYTES 4.4 % (15-50); MCH 28.1 pg (26.0-34.0); MCHC 30.7 g/dL (31.0-37.0); MCV 91.5 fL (80.0-100.0); MEAN PLATELET VOLUME 10.4 fL (7.4-10.4); MONOCYTES 7.4 % (2-11); NEUTROPHILS 87.5 % (40-80); PLATELET COUNT 191 10x3/uL (130-400); RBC 3.52 10x6/uL (4.20-6.10); WBC 10.9 10x3/uL (4.8-10.8)
[2018-01-29 06:13] LABS: CALC OSMOLALITY 289 mosm/kg (275-300); CALCIUM 8.5 mg/dL (8.5-10.1); CARBON DIOXIDE 30.6 mmol/L (21.0-32.0); CHLORIDE - SERUM 105 mmol/L (98-107); CREATININE - SERUM 0.6 mg/dL (0.6-1.3); GLUCOSE 228 mg/dL (74-106); MAGNESIUM - SERUM 1.7 mg/dL (1.8-2.4); POTASSIUM - SERUM 4.6 mmol/L (3.5-5.1); SODIUM 140 mmol/L (136-145); UREA NITROGEN 25 mg/dL (7-18); eGFR NON AFRICAN AMERICAN > 90 mL/min (90-120)
[2018-01-30] VITALS (24 sets, daily range): BP systolic 91–130; BP diastolic 47–69
[2018-01-30 05:30] LABS: BASOPHILS 0.1 % (0-2); EOSINOPHILS 0.2 % (0-7); HEMATOCRIT 30.8 % (42.0-54.0); HEMOGLOBIN 9.7 g/dL (13.5-17.5); IMMATURE GRANULOCYTES 0.7 % (0-5); LYMPHOCYTES 8.7 % (15-50); MCH 28.6 pg (26.0-34.0); MCHC 31.5 g/dL (31.0-37.0); MCV 90.9 fL (80.0-100.0); MONOCYTES 8.2 % (2-11); NEUTROPHILS 82.1 % (40-80); PLATELET COUNT 176 10x3/uL (130-400); RBC 3.39 10x6/uL (4.20-6.10); RDW 15.9 % (11.5-14.5); WBC 8.6 10x3/uL (4.8-10.8)
[2018-01-30 06:19] LABS: CALC OSMOLALITY 290 mosm/kg (275-300); CALCIUM 8.4 mg/dL (8.5-10.1); CARBON DIOXIDE 33.3 mmol/L (21.0-32.0); CHLORIDE - SERUM 102 mmol/L (98-107); GLUCOSE 251 mg/dL (74-106); MAGNESIUM - SERUM 1.5 mg/dL (1.8-2.4); PHOSPHOROUS 2.9 mg/dL (2.5-4.9); SODIUM 139 mmol/L (136-145); UREA NITROGEN 26 mg/dL (7-18)
[2018-01-30 06:40] LABS: CREATININE - SERUM 0.8 mg/dL (0.6-1.3); POTASSIUM - SERUM 3.9 mmol/L (3.5-5.1); eGFR NON AFRICAN AMERICAN > 90 mL/min (90-120)
[2018-01-30 09:15] LABS: FUNGUS CULTURE RESULT 1 Candida glabrata (())
[2018-01-31] VITALS (25 sets, daily range): BP systolic 86–131; BP diastolic 51–78
[2018-01-31 04:10] LABS: BASOPHILS 0 % (0-2); EOSINOPHILS 0 % (0-7); HEMOGLOBIN 10.7 g/dL (13.5-17.5); IMMATURE GRANULOCYTES 0.8 % (0-5); LYMPHOCYTES 9.9 % (15-50); MCH 28.7 pg (26.0-34.0); MCHC 31.5 g/dL (31.0-37.0); MCV 91.2 fL (80.0-100.0); MEAN PLATELET VOLUME 10.4 fL (7.4-10.4); MONOCYTES 6.4 % (2-11); NEUTROPHILS 82.9 % (40-80); PLATELET COUNT 186 10x3/uL (130-400); RBC 3.73 10x6/uL (4.20-6.10); RDW 15.6 % (11.5-14.5); WBC 9.8 10x3/uL (4.8-10.8)
[2018-01-31 04:19] LABS: APTT 26.3 SECONDS (22.8-39.4); CALC OSMOLALITY 290 mosm/kg (275-300); CARBON DIOXIDE 38.3 mmol/L (21.0-32.0); CHLORIDE - SERUM 100 mmol/L (98-107); CREATININE - SERUM 0.8 mg/dL (0.6-1.3); GLUCOSE 248 mg/dL (74-106); INR 1.05 (0.85-1.17); MAGNESIUM - SERUM 1.7 mg/dL (1.8-2.4); POTASSIUM - SERUM 3.7 mmol/L (3.5-5.1); PROTIME 13.3 SECONDS (11.6-15.0); SODIUM 139 mmol/L (136-145); UREA NITROGEN 26 mg/dL (7-18); eGFR NON AFRICAN AMERICAN > 90 mL/min (90-120)
[2018-02-01] VITALS (24 sets, daily range): BP systolic 95–132; BP diastolic 44–74
[2018-02-01 04:45] LABS: BASOPHILS 0.1 % (0-2); EOSINOPHILS 0.1 % (0-7); HEMATOCRIT 33.8 % (42.0-54.0); HEMOGLOBIN 10.6 g/dL (13.5-17.5); IMMATURE GRANULOCYTES 0.5 % (0-5); LYMPHOCYTES 3.7 % (15-50); MCH 28.8 pg (26.0-34.0); MCHC 31.4 g/dL (31.0-37.0); MCV 91.8 fL (80.0-100.0); MEAN PLATELET VOLUME 10.1 fL (7.4-10.4); MONOCYTES 4.5 % (2-11); NEUTROPHILS 91.1 % (40-80); PLATELET COUNT 190 10x3/uL (130-400); RBC 3.68 10x6/uL (4.20-6.10); RDW 15.8 % (11.5-14.5)
[2018-02-01 04:49] LABS: WBC 14.5 10x3/uL (4.8-10.8)
[2018-02-01 05:37] LABS: CALC OSMOLALITY 289 mosm/kg (275-300); CALCIUM 8.5 mg/dL (8.5-10.1); CARBON DIOXIDE 36.6 mmol/L (21.0-32.0); CHLORIDE - SERUM 101 mmol/L (98-107); CREATININE - SERUM 0.8 mg/dL (0.6-1.3); MAGNESIUM - SERUM 1.8 mg/dL (1.8-2.4); POTASSIUM - SERUM 3.7 mmol/L (3.5-5.1); SODIUM 142 mmol/L (136-145); UREA NITROGEN 27 mg/dL (7-18); eGFR NON AFRICAN AMERICAN > 90 mL/min (90-120)
[2018-02-01 05:44] LABS: GLUCOSE 136 mg/dL (74-106)
[2018-02-02] VITALS (19 sets, daily range): BP systolic 95–133; BP diastolic 55–90
[2018-02-02 05:21] LABS: BASOPHILS 0.1 % (0-2); EOSINOPHILS 0 % (0-7); HEMOGLOBIN 9.9 g/dL (13.5-17.5); IMMATURE GRANULOCYTES 0.3 % (0-5); LYMPHOCYTES 2.9 % (15-50); MCH 28.2 pg (26.0-34.0); MCHC 30.9 g/dL (31.0-37.0); MCV 91.2 fL (80.0-100.0); MEAN PLATELET VOLUME 10.2 fL (7.4-10.4); MONOCYTES 3.1 % (2-11); NEUTROPHILS 93.6 % (40-80); PLATELET COUNT 177 10x3/uL (130-400); RBC 3.51 10x6/uL (4.20-6.10); RDW 16.2 % (11.5-14.5); WBC 11.9 10x3/uL (4.8-10.8)
[2018-02-02 05:35] LABS: ALBUMIN 1.6 g/dL (3.4-5.0); ALKALINE PHOSPHATASE 242 U/L (46-116); ALT (SGPT) 44 U/L (10-68); BILIRUBIN - TOTAL 0.83 mg/dL (0.2-1.3); CALCIUM 8.6 mg/dL (8.5-10.1); CHLORIDE - SERUM 99 mmol/L (98-107); CREATININE - SERUM 0.9 mg/dL (0.6-1.3); POTASSIUM - SERUM 3.4 mmol/L (3.5-5.1); PROTEIN - SERUM 6.1 g/dL (6.4-8.2); SODIUM 138 mmol/L (136-145); eGFR NON AFRICAN AMERICAN 87 mL/min (90-120)
[2018-02-02 05:38] LABS: CALC OSMOLALITY 291 mosm/kg (275-300); GLUCOSE 229 mg/dL (74-106); UREA NITROGEN 37 mg/dL (7-18)
[2018-02-02 23:33] LABS: HEMOGLOBIN 9.6 g/dL (13.5-17.5)
[2018-02-03] VITALS (24 sets, daily range): BP systolic 96–168; BP diastolic 56–96
[2018-02-03 05:46] LABS: BASOPHILS 0 % (0-2); EOSINOPHILS 0.1 % (0-7); HEMATOCRIT 30.4 % (42.0-54.0); HEMOGLOBIN 9.5 g/dL (13.5-17.5); IMMATURE GRANULOCYTES 0.2 % (0-5); LYMPHOCYTES 4.4 % (15-50); MCH 28.6 pg (26.0-34.0); MCHC 31.3 g/dL (31.0-37.0); MCV 91.6 fL (80.0-100.0); MEAN PLATELET VOLUME 10.9 fL (7.4-10.4); MONOCYTES 4.2 % (2-11); NEUTROPHILS 91.1 % (40-80); PLATELET COUNT 179 10x3/uL (130-400); RBC 3.32 10x6/uL (4.20-6.10); WBC 9.2 10x3/uL (4.8-10.8)
[2018-02-03 06:02] LABS: ALBUMIN 1.6 g/dL (3.4-5.0); ALKALINE PHOSPHATASE 203 U/L (46-116); ALT (SGPT) 35 U/L (10-68); BILIRUBIN - TOTAL 0.99 mg/dL (0.2-1.3); CALC OSMOLALITY 296 mosm/kg (275-300); CALCIUM 8.7 mg/dL (8.5-10.1); CARBON DIOXIDE 32.2 mmol/L (21.0-32.0); CHLORIDE - SERUM 101 mmol/L (98-107); CREATININE - SERUM 0.9 mg/dL (0.6-1.3); GLUCOSE 210 mg/dL (74-106); MAGNESIUM - SERUM 1.7 mg/dL (1.8-2.4); PHOSPHOROUS 3.2 mg/dL (2.5-4.9); POTASSIUM - SERUM 3.4 mmol/L (3.5-5.1); PROTEIN - SERUM 6.1 g/dL (6.4-8.2); SODIUM 142 mmol/L (136-145); UREA NITROGEN 36 mg/dL (7-18); eGFR NON AFRICAN AMERICAN 87 mL/min (90-120)
[2018-02-03 18:07] LABS: AFB SPECIMEN PROCESSING Concentration (())
[2018-02-04] VITALS (24 sets, daily range): BP systolic 102–150; BP diastolic 50–90
[2018-02-04 04:15] LABS: CALC OSMOLALITY 299 mosm/kg (275-300); CALCIUM 8.6 mg/dL (8.5-10.1); CARBON DIOXIDE 34.2 mmol/L (21.0-32.0); CHLORIDE - SERUM 106 mmol/L (98-107); CREATININE - SERUM 0.8 mg/dL (0.6-1.3); POTASSIUM - SERUM 3.6 mmol/L (3.5-5.1); SODIUM 142 mmol/L (136-145); UREA NITROGEN 32 mg/dL (7-18); eGFR NON AFRICAN AMERICAN > 90 mL/min (90-120)
[2018-02-04 04:32] LABS: GLUCOSE 272 mg/dL (74-106); MAGNESIUM - SERUM 2.2 mg/dL (1.8-2.4)
[2018-02-05] VITALS (23 sets, daily range): BP systolic 94–140; BP diastolic 46–76
[2018-02-05 05:12] LABS: BASOPHILS 0 % (0-2); EOSINOPHILS 0 % (0-7); HEMATOCRIT 25.7 % (42.0-54.0); HEMOGLOBIN 7.8 g/dL (13.5-17.5); IMMATURE GRANULOCYTES 0.3 % (0-5); LYMPHOCYTES 7.2 % (15-50); MCH 28.3 pg (26.0-34.0); MCHC 30.4 g/dL (31.0-37.0); MCV 93.1 fL (80.0-100.0); MEAN PLATELET VOLUME 9.5 fL (7.4-10.4); MONOCYTES 7.9 % (2-11); NEUTROPHILS 84.6 % (40-80); PLATELET COUNT 188 10x3/uL (130-400); RBC 2.76 10x6/uL (4.20-6.10); RDW 16.4 % (11.5-14.5); WBC 5.7 10x3/uL (4.8-10.8)
[2018-02-05 05:33] LABS: CALCIUM 8.5 mg/dL (8.5-10.1); CARBON DIOXIDE 35.1 mmol/L (21.0-32.0); CHLORIDE - SERUM 108 mmol/L (98-107); CREATININE - SERUM 0.6 mg/dL (0.6-1.3); MAGNESIUM - SERUM 2.1 mg/dL (1.8-2.4); SODIUM 145 mmol/L (136-145); UREA NITROGEN 32 mg/dL (7-18); eGFR NON AFRICAN AMERICAN > 90 mL/min (90-120)
[2018-02-05 05:49] LABS: CALC OSMOLALITY 301 mosm/kg (275-300); GLUCOSE 213 mg/dL (74-106); POTASSIUM - SERUM 4.3 mmol/L (3.5-5.1)
[2018-02-05 09:08] LABS: FUNGUS STAIN Final report (())
[2018-02-05 15:28] LABS: HEMATOCRIT 28.5 % (42.0-54.0); HEMOGLOBIN 8.9 g/dL (13.5-17.5)
[2018-02-06] VITALS (23 sets, daily range): BP systolic 116–153; BP diastolic 65–86
[2018-02-06 05:43] LABS: BASOPHILS 0.2 % (0-2); EOSINOPHILS 0.2 % (0-7); HEMOGLOBIN 9.8 g/dL (13.5-17.5); IMMATURE GRANULOCYTES 0.4 % (0-5); LYMPHOCYTES 6.8 % (15-50); MCH 28.4 pg (26.0-34.0); MCHC 30.6 g/dL (31.0-37.0); MCV 92.8 fL (80.0-100.0); MEAN PLATELET VOLUME 10.1 fL (7.4-10.4); NEUTROPHILS 86.4 % (40-80); PLATELET COUNT 180 10x3/uL (130-400); RDW 16.3 % (11.5-14.5); WBC 5.3 10x3/uL (4.8-10.8)
[2018-02-06 05:47] LABS: RBC 3.45 10x6/uL (4.20-6.10)
[2018-02-06 06:20] LABS: CALC OSMOLALITY 294 mosm/kg (275-300); CALCIUM 8.4 mg/dL (8.5-10.1); CARBON DIOXIDE 36.5 mmol/L (21.0-32.0); CHLORIDE - SERUM 104 mmol/L (98-107); CREATININE - SERUM 0.6 mg/dL (0.6-1.3); GLUCOSE 254 mg/dL (74-106); POTASSIUM - SERUM 4.4 mmol/L (3.5-5.1); SODIUM 141 mmol/L (136-145); UREA NITROGEN 27 mg/dL (7-18); eGFR NON AFRICAN AMERICAN > 90 mL/min (90-120)
[2018-02-07] VITALS (16 sets, daily range): BP systolic 103–160; BP diastolic 60–89
[2018-02-07 04:44] LABS: BASOPHILS 0.2 % (0-2); EOSINOPHILS 0.4 % (0-7); HEMATOCRIT 27.7 % (42.0-54.0); HEMOGLOBIN 8.6 g/dL (13.5-17.5); IMMATURE GRANULOCYTES 1.1 % (0-5); LYMPHOCYTES 9.7 % (15-50); MCH 28.5 pg (26.0-34.0); MCV 91.7 fL (80.0-100.0); MONOCYTES 7.6 % (2-11); PLATELET COUNT 204 10x3/uL (130-400); RBC 3.02 10x6/uL (4.20-6.10); WBC 5.7 10x3/uL (4.8-10.8)
[2018-02-07 04:53] LABS: CALC OSMOLALITY 291 mosm/kg (275-300); CALCIUM 8.4 mg/dL (8.5-10.1); CARBON DIOXIDE 36.3 mmol/L (21.0-32.0); CHLORIDE - SERUM 102 mmol/L (98-107); CREATININE - SERUM 0.6 mg/dL (0.6-1.3); GLUCOSE 252 mg/dL (74-106); POTASSIUM - SERUM 4.1 mmol/L (3.5-5.1); SODIUM 139 mmol/L (136-145); UREA NITROGEN 27 mg/dL (7-18); eGFR NON AFRICAN AMERICAN > 90 mL/min (90-120)
[2018-02-07] MEDS ORDERED: ALBUTEROL0.63 MG/3 UPD (14:22)
[2018-02-07] MEDS ORDERED: IPRAT-ALBUT 0.5-3 ML UPD (14:23)
[2018-02-07] MEDS ORDERED: LOPRESSOR25 MG PEG (14:24)
[2018-02-07] MEDS ORDERED: CARDIZEM30 MG PO (14:24)
[2018-02-07] MEDS ORDERED: CORDARONE200 MG NG (14:24)
[2018-02-07] MEDS ORDERED: LASIX INJ40 MG/4 ML IV (14:25)
[2018-02-07] MEDS ORDERED: K-DUR20 MEQ PO (14:25)
[2018-02-07] MEDS ORDERED: PROTONIX I40 MG/VIAL IV (14:26)
[2018-02-07] MEDS ORDERED: PULMICORT0.5 MG/21 UPD (14:27)
[2018-02-07] MEDS ORDERED: FAMVIR500 MG PO (14:34)
[2018-02-09 16:16] LABS: FUNGUS CULTURE RESULT 1 Candida tropicalis (())
[2018-02-18 08:12] LABS: FUNGUS MYCOLOGY CULTURE Final report (())
[2018-03-01 20:09] LABS: FUNGUS MYCOLOGY CULTURE Final report (())
[2018-03-17 18:08] LABS: ACID FAST CULTURE Negative (()); ACID FAST SMEAR Negative (())
[2018-03-29 15:25] LABS: ACID FAST CULTURE Negative (()); ACID FAST SMEAR Negative (())
== END 2018-02-07 16:50 | disposition short-term general hospital (02) | DRG 4 ==
LOC: D.ICU 16:27 → D.MS 16:27 → D.ICU 23:30
PROVIDERS: Emergency Medicine; Family Medicine; Internal Medicine Cardiovascular Disease; Internal Medicine Nephrology; Internal Medicine Pulmonary Disease; Surgery
PROC: 5A1223Z Performance of Cardiac Pacing, Continuous (ICD-10-PCS; principal; 2018-01-17)
PROC: 5A1955Z Respiratory Ventilation, Greater than 96 Consecutive Hours (ICD-10-PCS; 2018-01-17)
PROC: 0BH17EZ Insertion of Endotracheal Airway into Trachea, Via Natural or Artificial Opening (ICD-10-PCS; 2018-01-17)
PROC: 0B9B8ZZ Drainage of Left Lower Lobe Bronchus, Via Natural or Artificial Opening Endoscopic (ICD-10-PCS; 2018-01-21)
PROC: 0B948ZZ Drainage of Right Upper Lobe Bronchus, Via Natural or Artificial Opening Endoscopic (ICD-10-PCS; 2018-01-21)
PROC: 0B988ZZ Drainage of Left Upper Lobe Bronchus, Via Natural or Artificial Opening Endoscopic (ICD-10-PCS; 2018-01-21)
PROC: 0B938ZZ Drainage of Right Main Bronchus, Via Natural or Artificial Opening Endoscopic (ICD-10-PCS; 2018-01-21)
PROC: 0B978ZZ Drainage of Left Main Bronchus, Via Natural or Artificial Opening Endoscopic (ICD-10-PCS; 2018-01-21)
PROC: 0B968ZZ Drainage of Right Lower Lobe Bronchus, Via Natural or Artificial Opening Endoscopic (ICD-10-PCS; 2018-01-21)
PROC: 0JH604Z Insertion of Pacemaker, Single Chamber into Chest Subcutaneous Tissue and Fascia, Open Approach (ICD-10-PCS; 2018-01-22)
PROC: 02HK3JZ Insertion of Pacemaker Lead into Right Ventricle, Percutaneous Approach (ICD-10-PCS; 2018-01-22)
PROC: 0B978ZZ Drainage of Left Main Bronchus, Via Natural or Artificial Opening Endoscopic (ICD-10-PCS; 2018-02-01)
PROC: 0B938ZZ Drainage of Right Main Bronchus, Via Natural or Artificial Opening Endoscopic (ICD-10-PCS; 2018-02-01)
PROC: 0DH63UZ Insertion of Feeding Device into Stomach, Percutaneous Approach (ICD-10-PCS; 2018-02-02)
PROC: 0DJ08ZZ Inspection of Upper Intestinal Tract, Via Natural or Artificial Opening Endoscopic (ICD-10-PCS; 2018-02-02)
PROC: 0B113F4 Bypass Trachea to Cutaneous with Tracheostomy Device, Percutaneous Approach (ICD-10-PCS; 2018-02-02 13:00)
DX: D50.9 Iron deficiency anemia, unspecified (principal); J96.21 Acute and chronic respiratory failure with hypoxia; J96.20 Acute and chronic respiratory failure, unspecified whether with hypoxia or hypercapnia; I46.9 Cardiac arrest, cause unspecified; G92 Toxic encephalopathy; J69.0 Pneumonitis due to inhalation of food and vomit; J15.212 Pneumonia due to Methicillin resistant Staphylococcus aureus; J44.1 Chronic obstructive pulmonary disease with (acute) exacerbation; F17.203 Nicotine dependence unspecified, with withdrawal; N04.9 Nephrotic syndrome with unspecified morphologic changes; J81.1 Chronic pulmonary edema; I47.1 Supraventricular tachycardia; I44.2 Atrioventricular block, complete; I48.91 Unspecified atrial fibrillation; I25.10 Atherosclerotic heart disease of native coronary artery without angina pectoris; I10 Essential (primary) hypertension; E11.9 Type 2 diabetes mellitus without complications; E83.52 Hypercalcemia; Z66 Do not resuscitate; R00.1 Bradycardia, unspecified; R79.89 Other specified abnormal findings of blood chemistry; I95.9 Hypotension, unspecified; E78.5 Hyperlipidemia, unspecified; E83.42 Hypomagnesemia; I27.20 Pulmonary hypertension, unspecified; E03.9 Hypothyroidism, unspecified